=== PATIENT | female | born 1950 | race American Indian/Alaskan Native ===

== ENCOUNTER 2019-02-27 11:50 | Emergency (ER) | payer MEDICARE, OTHER ==
--- NOTE | 2019-02-27 12:04 | Emergency Department Report ---
Chief Complaint: Extremity Injury, Lower Stated Complaint: BACK PAIN Time Seen by Provider: 02/27/19 11:58 - HPI History of Present Illness: This is a 68 y.o. F. that presents to the ER with low back pain radiating to left groin for 2 days. Patient also requesting refills for blood pressure medication. She is visiting from [place] and ran out of medication. PMH HTN - Exam Vital Signs: Vital Signs 02/27/19 12:04 Temperature 98.0 F Pulse Rate 81 Respiratory 16 Rate Blood Pressure 152/89 O2 Sat by Pulse 99 Oximetry MSE screening note: Focused history and physical exam performed. Due to findings the following was ordered: This initial assessment/diagnostic orders/clinical plan/treatment(s) is/are subject to change based on patient's health status, clinical progression and re- assessment by fellow clinical providers in the ED. Further treatment and workup at subsequent clinical providers discretion. Patient/guardians urged not to elope from the ED as their condition may be serious if not clinically assessed and managed. Initial orders include: Labs and L-spine ED Disposition for MSE Condition: Stable
[2019-02-27 12:06] VITALS: BP 152/89
--- NOTE | 2019-02-27 12:31 | XRay Report ---
LUMBOSACRAL SPINE, 3 VIEWS: History: Back pain Findings: There is 3 mm anterolisthesis of L4 with respect to L5. This appears to be secondary to degenerative facet arthropathy. The remaining lumbar vertebra are normal in alignment. There is no evidence for compression deformity, displaced fracture or bone lesion. There is moderate disc space narrowing at L5-S1. The remaining disc levels are within normal limits. 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 Impression: Lumbar spondylosis as described. No acute process.
[2019-02-27 14:56] LABS: Bacteria,Urine 1+ /HPF (Negative); Bilirubin,Urine NEG (Negative); Blood,Urine SM (Negative); Color,Urine Yellow (Yellow); Protein,Urine <15 mg/dL mg/dL (Negative); Urobilinogen,Urine < 2.0 mg/dL (<2.0)
--- NOTE | 2019-02-27 15:10 | Emergency Department Report ---
ED General Adult HPI - General Chief complaint: Extremity Injury, Lower Stated complaint: BACK PAIN Time Seen by Provider: 02/27/19 11:58 Source: patient Mode of arrival: Ambulatory Limitations: No Limitations - History of Present Illness Initial comments: FATOUMATA shows a presents to ED with multiple complaints including left groin pain, back pain, bilateral knee pain, tremors of the left side of her body. Patient states current pain has been for the last 2 days, worse with flexion at the hip. Patient states the bilateral knee pain has been ongoing. Also reports a tremors or chronic for several months now. The patient denies fever, nausea or vomiting. Denies dysuria, hematuria, urinary frequency. Although patient states she thought her symptoms may be due to a UTI -: days(s) (2) Location: pelvis Radiation: back Consistency: intermittent Improves with: immobilization Worsens with: movement Associated Symptoms: denies: fever/chills, nausea/vomiting - Related Data Previous Rx's Medication Instructions Recorded Last Taken Type Naproxen [Naprosyn] 500 mg PO BID PRN #20 tablet 02/27/19 Unknown Rx cephALEXin [Keflex] 500 mg PO Q12HR 5 Days #10 cap 02/27/19 Unknown Rx Allergies Allergy/AdvReac Type Severity Reaction Status Date / Time No Known Allergies Allergy Unverified 02/27/19 11:52 ED Review of Systems ROS: Stated complaint: BACK PAIN Other details as noted in HPI Comment: All other systems reviewed and negative Constitutional: denies: fever Respiratory: denies: cough, shortness of breath Cardiovascular: denies: palpitations Gastrointestinal: denies: nausea, vomiting Genitourinary: denies: dysuria, frequency, hematuria Musculoskeletal: back pain ED Past Medical Hx - Past Medical History Hx Hypertension: Yes Additional medical history: C/S - Social History Smoking Status: Never Smoker Substance Use Type: None - Medications Home Medications: Home Medications Medication Instructions Recorded Confirmed Last Taken Type Naproxen [Naprosyn] 500 mg PO BID PRN #20 tablet 02/27/19 Unknown Rx cephALEXin [Keflex] 500 mg PO Q12HR 5 Days #10 cap 02/27/19 Unknown Rx ED Physical Exam - General Limitations: No Limitations General appearance: alert, in no apparent distress - Head Head exam: Present: atraumatic, normocephalic - Eye Eye exam: Present: normal appearance - ENT ENT exam: Present: mucous membranes moist - Neck Neck exam: Present: normal inspection - Respiratory Respiratory exam: Present: normal lung sounds bilaterally. Absent: respiratory distress - Cardiovascular Cardiovascular Exam: Present: regular rate, normal rhythm - GI/Abdominal GI/Abdominal exam: Present: soft. Absent: distended, tenderness - Extremities Exam Extremities exam: Present: normal inspection. Absent: tenderness - Back Exam Back exam: Absent: CVA tenderness (R), CVA tenderness (L), vertebral tenderness - Neurological Exam Neurological exam: Present: alert, oriented X3 - Psychiatric Psychiatric exam: Present: normal affect, normal mood - Skin Skin exam: Present: warm, dry, intact, normal color ED Course Vital Signs 02/27/19 12:04 Temperature 98.0 F Pulse Rate 81 Respiratory 16 Rate Blood Pressure 152/89 O2 Sat by Pulse 99 Oximetry ED Medical Decision Making - Radiology Data Radiology results: report reviewed, image reviewed - Medical Decision Making - lumbar films normal - no CVA tenderness - pt w/ left groin pain with flexion of hip (walking up stairs, etc) - pt ambulatory - possible groin strain - mild UTI on UA, will treat with keflex - pt afebrile, nontoxic appearing - return precautions given - Differential Diagnosis pulled muscle, fracture, uti, pyelonephritis Critical care attestation.: If time is entered above; I have spent that time in minutes in the direct care of this critically ill patient, excluding procedure time. ED Disposition Clinical Impression: UTI (urinary tract infection) Disposition: - TO HOME OR SELFCARE Is pt being admited?: No Condition: Stable Instructions: Urinary Tract Infection in Women (ED) Prescriptions: cephALEXin [Keflex] 500 mg PO Q12HR 5 Days #10 cap Naproxen [Naprosyn] 500 mg PO BID PRN #20 tablet PRN Reason: pain Referrals: FATUMA OREILLY MD [Primary Care Provider] - 3-5 Days PRIMARY CAREMD [Referring] - 3-5 Days Time of Disposition: 15:10
== END 2019-02-27 15:27 | disposition home or self-care (01) ==
LOC: ED 11:50
DX: N39.0 Urinary tract infection, site not specified (principal); I10 Essential (primary) hypertension; M25.561 Pain in right knee; M25.562 Pain in left knee
CPT/HCPCS: 72100; 81001